=== PATIENT | female | born 1965 | race Caucasian/White ===

== ENCOUNTER → 2018-12-03 | Outpatient (CLI) | payer OTHER ==
--- NOTE | 2018-12-04 10:45 | MM ---
Reason for exam: screening (asymptomatic). Last mammogram was performed 3 years ago. History: Patient is postmenopausal and is nulliparous. Family history of breast cancer in grandmother. Physical Findings: A clinical breast exam by your physician is recommended on an annual basis and results should be correlated with mammographic findings. MG Screening Mammo w CAD Bilateral CC and MLO view(s) were taken. Prior study comparison: December 06, 2015, bilateral MG screening mammo w CAD. December 04, 2011, mammogram, performed at [facility]. There are scattered fibroglandular densities. No significant new finding when compared with prior studies. ASSESSMENT: Benign, BI-RAD 2 RECOMMENDATION: Routine screening mammogram of both breasts in 1 year.
== END | disposition home or self-care (01) ==
LOC: RADMAMWWP 14:41
PROVIDERS: ATTEND Family Medicine
DX: Z12.31 Encounter for screening mammogram for malignant neoplasm of breast (principal)
CPT/HCPCS: 77067

== ENCOUNTER 2019-07-16 18:14 | Emergency (ER) | payer OTHER ==
[2019-07-16 18:25] VITALS: TEMP 98
--- NOTE | 2019-07-16 18:55 | ED ---
General Adult HPI - General Chief complaint: Recheck/Abnormal Lab/Rx Stated complaint: ABN labs Time Seen by Provider: 07/16/19 18:48 Source: patient, RN notes reviewed, old records reviewed Mode of arrival: wheelchair Limitations: altered mental status - History of Present Illness Initial comments: 53-year-old female presents from [facility] for evaluation of abnormal outpatient lab. Patient was found to be hypokalemic today and sent to the emergency department for evaluation. Patient has no specific complaints. No vomiting or diarrhea. No fever or chills. She receives routine blood draws because she is on Clazuril. - Related Data Home Medications Medication Instructions Recorded Confirmed cloZAPine [Clozaril] 300 mg PO HS 11/25/15 07/16/19 Cyanocobalamin [Vitamin B-12] 500 mcg PO DAILY 03/22/16 07/16/19 Docusate [Colace] 100 mg PO BID 03/22/16 07/16/19 Ibuprofen [Motrin] 600 mg PO Q8HR PRN 03/22/16 07/16/19 Inulin/Chromium Picolinate [Fiber 1 tab PO DAILY 03/22/16 07/16/19 Gummies Chew] Multivitamins, Thera [Multivitamin 1 tab PO DAILY 03/22/16 07/16/19 (formulary)] [place]-3 Fatty Acids/Fish Oil [Fish 1 cap PO QAM 03/22/16 07/16/19 Oil 1,000 mg Softgel] cloZAPine [Clozaril] 100 mg PO DAILY 03/22/16 07/16/19 LORazepam [Ativan] 0.5 mg PO HS PRN 04/10/16 07/16/19 Levothyroxine Sodium [Synthroid] 75 mcg PO DAILY 04/10/16 07/16/19 lamoTRIgine [LaMICtal] 100 mg PO QAM 04/10/16 07/16/19 Krill Oil 500 mg PO DAILY 06/06/17 07/16/19 diphenhydrAMINE HCL [Benadryl] 25 mg PO HS 06/06/17 07/16/19 lamoTRIgine [LaMICtal] 150 mg PO HS 06/06/17 07/16/19 traZODone HCL [Desyrel] 150 mg PO HS 06/06/17 07/16/19 Doxycycline [Vibramycin] 100 mg PO BID 07/17/18 07/16/19 Previous Rx's Medication Instructions Recorded Loratadine [Claritin] 10 mg PO DAILY #30 tab 05/19/15 Montelukast [Singulair] 10 mg PO HS #30 tab 05/19/15 Allergies Allergy/AdvReac Type Severity Reaction Status Date / Time Penicillins Allergy Unknown Verified 07/16/19 18:25 Childhood sulfamethoxazole Allergy Anaphylaxis Verified 07/16/19 18:25 [From Bactrim] trimethoprim [From Bactrim] Allergy Anaphylaxis Verified 07/16/19 18:25 Review of Systems ROS Statement: Those systems with pertinent positive or pertinent negative responses have been documented in the HPI. ROS Other: All systems not noted in ROS Statement are negative. Past Medical History Past Medical History: GERD/Reflux, Hyperlipidemia Additional Past Medical History / Comment(s): Possible Sleep Apnea, DIFF TO DO TESTING R/T MENTAL HEALTH, Development Delay. RHINITIS, POSS ALLERGIES. UNSTEADY AT TIMES R/T WGT. CHRONIC CONSTIPATION, RECENTLY BLACK W/ POS BLOOD. History of Any Multi-Drug Resistant Organisms: None Reported Past Surgical History: Appendectomy, Hysterectomy Additional Past Surgical History / Comment(s): COLONOSCOPY 11/2015. Past Anesthesia/Blood Transfusion Reactions: No Reported Reaction Additional Past Anesthesia/Blood Transfusion Reaction / Comment(s): VERY HARD IV START. Past Psychological History: Depression, Schizoaffective Disorder Smoking Status: Never smoker Past Alcohol Use History: None Reported Past Drug Use History: None Reported - Past Family History Mother Family Medical History: No Reported History General Exam Limitations: altered mental status General appearance: alert, in no apparent distress Head exam: Present: atraumatic, normocephalic Eye exam: Present: normal appearance, PERRL ENT exam: Present: normal exam Neck exam: Present: normal inspection. Absent: tenderness, meningismus Respiratory exam: Present: normal lung sounds bilaterally. Absent: respiratory distress Cardiovascular Exam: Present: regular rate, normal rhythm GI/Abdominal exam: Present: soft. Absent: distended, tenderness Extremities exam: Present: normal inspection, normal capillary refill. Absent: pedal edema Neurological exam: Present: alert. Absent: motor sensory deficit Skin exam: Present: warm, dry, intact, normal color. Absent: cyanosis, diaphoretic Course Vital Signs 07/16/19 18:22 Temperature 98.0 F Pulse Rate 105 H Respiratory 22 Rate Blood Pressure 134/77 O2 Sat by Pulse 98 Oximetry EKG Findings - EKG Comments: EKG Findings:: EKG: Sinus rhythm, low voltage, rate of 100, MO interval 140, QRS duration 92, QTC 454, no ST segment elevation Medical Decision Making - Medical Decision Making 53 presenting for abnormal lab testing. She was found to be hypokalemic and sent in for evaluation. Laboratory tests are redraw, she has normal CBC, normal CMP, normal potassium, normal magnesium. She will be discharged home - Lab Data Result diagrams: 07/16/19 19:10 07/16/19 19:10 Lab Results 07/16/19 07/16/19 Range/Units 19:10 19:10 WBC 5.9 (3.8-10.6) k/uL RBC 4.42 (3.80-5.40) m/uL Hgb 12.6 (11.4-16.0) gm/dL Hct 39.5 (34.0-46.0) % MCV 89.4 (80.0-100.0) fL MCH 28.5 (25.0-35.0) pg MCHC 31.9 (31.0-37.0) g/dL RDW 12.9 (11.5-15.5) % Plt Count 157 (150-450) k/uL Neutrophils % 64 % Lymphocytes % 23 % Monocytes % 6 % Eosinophils % 2 % Basophils % 2 % Neutrophils # 3.8 (1.3-7.7) k/uL Lymphocytes # 1.4 (1.0-4.8) k/uL Monocytes # 0.4 (0-1.0) k/uL Eosinophils # 0.1 (0-0.7) k/uL Basophils # 0.1 (0-0.2) k/uL Sodium 140 (137-145) mmol/L Potassium 4.0 (3.5-5.1) mmol/L Chloride 103 (98-107) mmol/L Carbon Dioxide 28 (22-30) mmol/L Anion Gap 9 mmol/L BUN 15 (7-17) mg/dL Creatinine 0.70 (0.52-1.04) mg/dL Est GFR (CKD-EPI)AfAm >90 (>60 ml/min/1.73 sqM) Est GFR (CKD-EPI)NonAf >90 (>60 ml/min/1.73 sqM) Glucose 163 H (74-99) mg/dL Calcium 9.3 (8.4-10.2) mg/dL Magnesium 1.7 (1.6-2.3) mg/dL Total Bilirubin 0.2 (0.2-1.3) mg/dL AST 27 (14-36) U/L ALT 21 (4-34) U/L Alkaline Phosphatase 102 (38-126) U/L Total Protein 7.0 (6.3-8.2) g/dL Albumin 4.2 (3.5-5.0) g/dL Disposition Clinical Impression: Abnormal laboratory test Disposition: HOME SELF-CARE Condition: Good Is patient prescribed a controlled substance at d/c from ED?: No Referrals: Nyasia Kaur MD [Primary Care Provider] - 1-2 days Time of Disposition: 19:55
[2019-07-16 19:33] LABS: Basophils # (A) 0.1 k/uL (0-0.2); Basophils % (A) 2 %; Eosinophils # (A) 0.1 k/uL (0-0.7); Eosinophils % (A) 2 %; HCT 39.5 % (34.0-46.0); HGB 12.6 gm/dL (11.4-16.0); Lymphocytes # (A) 1.4 k/uL (1.0-4.8); Lymphocytes % (A) 23 %; MCH 28.5 pg (25.0-35.0); MCHC 31.9 g/dL (31.0-37.0); MCV 89.4 fL (80.0-100.0); Mean Platelet Volume 7.5; Monocytes # (A) 0.4 k/uL (0-1.0); Monocytes % (A) 6 %; Neutrophils # (A) 3.8 k/uL (1.3-7.7); Neutrophils % (A) 64 %; Platelet Count 157 k/uL (150-450); RBC 4.42 m/uL (3.80-5.40); RDW 12.9 % (11.5-15.5); WBC 5.9 k/uL (3.8-10.6)
[2019-07-16 19:43] LABS: ALT 21 U/L (4-34); AST 27 U/L (14-36); African American GFR (CKD) >90 (>60 ml/min/1.73 sqM); Albumin 4.2 g/dL (3.5-5.0); Alkaline Phosphatase 102 U/L (38-126); Anion Gap 9 mmol/L; Blood Urea Nitrogen 15 mg/dL (7-17); Calcium 9.3 mg/dL (8.4-10.2); Carbon Dioxide 28 mmol/L (22-30); Chloride 103 mmol/L (98-107); Glucose 163 mg/dL (74-99); Magnesium 1.7 mg/dL (1.6-2.3); Non-African American GFR(CKD) >90 (>60 ml/min/1.73 sqM); Sodium 140 mmol/L (137-145); Total Bilirubin 0.2 mg/dL (0.2-1.3)
[2019-07-16 20:41] VITALS: BP 127/79; PULSE 97; RESP 16
== END 2019-07-16 20:40 | disposition home or self-care (01) ==
LOC: EC 18:14
DX: R79.9 Abnormal finding of blood chemistry, unspecified (principal); R41.82 Altered mental status, unspecified; K59.09 Other constipation; F32.9 Major depressive disorder, single episode, unspecified; F25.9 Schizoaffective disorder, unspecified; Z88.0 Allergy status to penicillin; Z88.2 Allergy status to sulfonamides; Z79.890 Hormone replacement therapy; Z79.899 Other long term (current) drug therapy
CPT/HCPCS: 36415; 80053; 83735; 85025; 93005; 99285

== ENCOUNTER 2019-08-02 11:40 | Observation (INO) | payer OTHER ==
[2019-08-02] MEDS ORDERED: IPRATROPIUM-ALBUTEROL 3 ML NEB INHALATION STA (12:17)
--- NOTE | 2019-08-02 12:27 | ED ---
URI HPI - General Source: patient, RN notes reviewed, Caregiver Mode of arrival: wheelchair Limitations: no limitations <Srikanth Salazar - Last Filed: 08/02/19 16:13> <Marisabel Loo - Last Filed: 08/09/19 17:07> - General Chief Complaint: Upper Respiratory Infection Stated Complaint: cold/congestion Time Seen by Provider: 08/02/19 11:56 - History of Present Illness Initial Comments: 53-year-old female presents emergency Department with caregiver chief complaint cough congestion for 1 week. Patient was started on antibiotics and steroids to use ago. They state that she has not improved at this time patient denies any chest pain no known fever or chills. Denies any nausea, vomiting, diarrhea constipation she states that her nose very congested, plugged at this time. Patient denies ear pain, sore throat no difficulty eating or drinking. (Srikanth Salazar) - Related Data Home Medications Medication Instructions Recorded Confirmed cloZAPine [Clozaril] 300 mg PO HS 11/25/15 08/02/19 Docusate [Colace] 100 mg PO BID 03/22/16 08/02/19 cloZAPine [Clozaril] 100 mg PO QAM 03/22/16 08/02/19 LORazepam [Ativan] 0.5 mg PO HS PRN 04/10/16 08/02/19 Levothyroxine Sodium [Synthroid] 75 mcg PO DAILY 04/10/16 08/02/19 lamoTRIgine [LaMICtal] 100 mg PO QAM 04/10/16 08/02/19 diphenhydrAMINE HCL [Benadryl] 25 mg PO HS 06/06/17 08/02/19 lamoTRIgine [LaMICtal] 150 mg PO HS 06/06/17 08/02/19 traZODone HCL [Desyrel] 150 mg PO HS 06/06/17 08/02/19 Acetaminophen [Tylenol Arthritis] 650 mg PO BID PRN 08/02/19 08/02/19 Famotidine [Pepcid] 20 mg PO BID 08/02/19 08/02/19 Hydrocortisone Cream 1 applic TOPICAL BID 08/02/19 08/02/19 [Hydrocortisone 2.5% Cream] Lactulose [Constulose] 10 gm PO BID 08/02/19 08/02/19 Mupirocin 2% Oint [Bactroban 2% 1 applic TOPICAL DAILY PRN 08/02/19 08/02/19 Oint] Nystatin 100,000 Unit/gm Powd 1 applic TOPICAL BID 08/02/19 08/02/19 [Mycostatin Powder] guaiFENesin [guaiFENesin Oral 400 mg PO DAILY PRN 08/02/19 08/02/19 Solution] Previous Rx's Medication Instructions Recorded Loratadine [Claritin] 10 mg PO DAILY #30 tab 05/19/15 Montelukast [Singulair] 10 mg PO HS #30 tab 05/19/15 Albuterol Inhaler [Ventolin Hfa 1 - 2 puff INHALATION RT-Q6H PRN 08/04/19 Inhaler] #1 inhaler Budesonide [Pulmicort Flexhaler] 2 puff INHALATION BID #1 inhaler 08/04/19 Fluticasone Nasal [place] [Flonase 1 spray EA NOSTRIL BID #1 spray 08/04/19 Nasal [place]] predniSONE [Deltasone] See Taper PO DAILY #20 tab 08/04/19 Allergies Allergy/AdvReac Type Severity Reaction Status Date / Time Penicillins Allergy Unknown Verified 08/02/19 17:44 Childhood sulfamethoxazole Allergy Anaphylaxis Verified 08/02/19 17:44 [From Bactrim] trimethoprim [From Bactrim] Allergy Anaphylaxis Verified 08/02/19 17:44 Review of Systems ROS Other: All systems not noted in ROS Statement are negative. <Srikanth Salazar - Last Filed: 08/02/19 16:13> ROS Other: All systems not noted in ROS Statement are negative. <Marisabel Loo - Last Filed: 08/09/19 17:07> ROS Statement: Those systems with pertinent positive or pertinent negative responses have been documented in the HPI. Past Medical History Past Medical History: GERD/Reflux, Hyperlipidemia Additional Past Medical History / Comment(s): Possible Sleep Apnea, DIFF TO DO TESTING R/T MENTAL HEALTH, Development Delay. RHINITIS, POSS ALLERGIES. UNSTEADY AT TIMES R/T WGT. CHRONIC CONSTIPATION, RECENTLY BLACK W/ POS BLOOD. History of Any Multi-Drug Resistant Organisms: None Reported Past Surgical History: Appendectomy, Hysterectomy Additional Past Surgical History / Comment(s): COLONOSCOPY 11/2015. Past Anesthesia/Blood Transfusion Reactions: No Reported Reaction Additional Past Anesthesia/Blood Transfusion Reaction / Comment(s): VERY HARD IV START. Past Psychological History: Depression, Schizoaffective Disorder Smoking Status: Never smoker Past Alcohol Use History: None Reported Past Drug Use History: None Reported - Past Family History Mother Family Medical History: No Reported History <Srikanth Salazar - Last Filed: 08/02/19 16:13> General Exam Limitations: no limitations General appearance: alert, in no apparent distress Head exam: Present: atraumatic, normocephalic, normal inspection Eye exam: Present: normal appearance, PERRL, EOMI. Absent: scleral icterus, conjunctival injection, periorbital swelling ENT exam: Present: mucous membranes moist, TM's normal bilaterally, normal external ear exam. Absent: normal oropharynx (Postnasal drainage) Neck exam: Present: normal inspection, full ROM. Absent: tenderness, meningismus, lymphadenopathy Respiratory exam: Present: wheezes. Absent: normal lung sounds bilaterally, respiratory distress, rales, rhonchi, stridor Cardiovascular Exam: Present: regular rate, normal rhythm, normal heart sounds. Absent: systolic murmur, diastolic murmur, rubs, gallop, clicks <Srikanth Slaazar - Last Filed: 08/02/19 16:13> Course Vital Signs 08/02/19 08/02/19 08/02/19 11:48 12:37 12:52 Temperature 98.5 F Pulse Rate 100 88 92 Respiratory 20 Rate Blood Pressure 131/80 O2 Sat by Pulse 95 Oximetry 08/02/19 08/02/19 08/02/19 15:01 15:12 15:23 Temperature 98.7 F Pulse Rate 96 88 88 Respiratory 18 Rate Blood Pressure 131/80 O2 Sat by Pulse 98 Oximetry 08/02/19 08/02/19 16:29 17:43 Temperature 98.9 F 98.7 F Pulse Rate 98 94 Respiratory 18 18 Rate Blood Pressure 139/73 128/74 O2 Sat by Pulse 94 L 98 Oximetry Medical Decision Making - Lab Data Result diagrams: 08/02/19 13:30 08/02/19 13:30 <Srikanth Salazar - Last Filed: 08/02/19 16:13> - Lab Data Result diagrams: 08/02/19 13:30 08/02/19 13:30 <Marisabel Loo - Last Filed: 08/09/19 17:07> - Medical Decision Making Chest x-ray does not show a definite pneumonia though patient is having p ersistent wheezing, dyspnea with productive cough. Patient be admitted for failed outpatient treatment for tracheobronchitis. Patient will be placed on azithromycin, Rocephin, breathing treatments and steroids. (Srikanth Salazar) I was available for consultation in the emergency department. The history and physical exam were done by the midlevel provider. I was consulted for this patients care. I reviewed the case with the midlevel provider and based on their presentation of the patient, I agree with the assessment, medical decision making and plan of care as documented. I discussed the case with Dr. Mcghee who accepted admission Chart was dictated using [employer] dictation software. Attempts were made to correct any dictation errors however some typographical errors may persist. (Marisabel Loo) - Lab Data Lab Results 08/02/19 08/02/19 08/02/19 Range/Units 12:15 13:30 13:30 WBC 8.5 (3.8-10.6) k/uL RBC 4.42 (3.80-5.40) m/uL Hgb 12.7 (11.4-16.0) gm/dL Hct 39.1 (34.0-46.0) % MCV 88.6 (80.0-100.0) fL MCH 28.7 (25.0-35.0) pg MCHC 32.3 (31.0-37.0) g/dL RDW 13.0 (11.5-15.5) % Plt Count 172 (150-450) k/uL Neutrophils % 72 % Lymphocytes % 13 % Monocytes % 7 % Eosinophils % 1 % Basophils % 3 % Neutrophils # 6.1 (1.3-7.7) k/uL Lymphocytes # 1.1 (1.0-4.8) k/uL Monocytes # 0.6 (0-1.0) k/uL Eosinophils # 0.1 (0-0.7) k/uL Basophils # 0.3 H (0-0.2) k/uL Sodium 137 (137-145) mmol/L Potassium 3.9 (3.5-5.1) mmol/L Chloride 98 (98-107) mmol/L Carbon Dioxide 29 (22-30) mmol/L Anion Gap 10 mmol/L BUN 16 (7-17) mg/dL Creatinine 0.65 (0.52-1.04) mg/dL Est GFR (CKD-EPI)AfAm >90 (>60 ml/min/1.73 sqM) Est GFR (CKD-EPI)NonAf >90 (>60 ml/min/1.73 sqM) Glucose 188 H (74-99) mg/dL Lactic Ac Sepsis Rflx Plasma Lactic Acid Volodymyr (0.7-2.0) mmol/L Calcium 9.5 (8.4-10.2) mg/dL Total Bilirubin 0.3 (0.2-1.3) mg/dL AST 26 (14-36) U/L ALT 19 (4-34) U/L Alkaline Phosphatase 90 (38-126) U/L Total Protein 7.1 (6.3-8.2) g/dL Albumin 4.3 (3.5-5.0) g/dL Influenza Type A RNA Not Detected (Not Detectd) Influenza Type B (PCR) Not Detected (Not Detectd) 08/02/19 08/02/19 Range/Units 13:30 14:10 WBC (3.8-10.6) k/uL RBC (3.80-5.40) m/uL Hgb (11.4-16.0) gm/dL Hct (34.0-46.0) % MCV (80.0-100.0) fL MCH (25.0-35.0) pg MCHC (31.0-37.0) g/dL RDW (11.5-15.5) % Plt Count (150-450) k/uL Neutrophils % % Lymphocytes % % Monocytes % % Eosinophils % % Basophils % % Neutrophils # (1.3-7.7) k/uL Lymphocytes # (1.0-4.8) k/uL Monocytes # (0-1.0) k/uL Eosinophils # (0-0.7) k/uL Basophils # (0-0.2) k/uL Sodium (137-145) mmol/L Potassium (3.5-5.1) mmol/L Chloride (98-107) mmol/L Carbon Dioxide (22-30) mmol/L Anion Gap mmol/L BUN (7-17) mg/dL Creatinine (0.52-1.04) mg/dL Est GFR (CKD-EPI)AfAm (>60 ml/min/1.73 sqM) Est GFR (CKD-EPI)NonAf (>60 ml/min/1.73 sqM) Glucose (74-99) mg/dL Lactic Ac Sepsis Rflx Y Plasma Lactic Acid Volodymyr 2.7 H* (0.7-2.0) mmol/L Calcium (8.4-10.2) mg/dL Total Bilirubin (0.2-1.3) mg/dL AST (14-36) U/L ALT (4-34) U/L Alkaline Phosphatase (38-126) U/L Total Protein (6.3-8.2) g/dL Albumin (3.5-5.0) g/dL Influenza Type A RNA (Not Detectd) Influenza Type B (PCR) (Not Detectd) Disposition <Srikanth Salazar - Last Filed: 08/02/19 16:13> <Marisabel Loo - Last Filed: 08/09/19 17:07> Clinical Impression: Tracheobronchitis, Failure of outpatient treatment Disposition: ADMITTED IP TO THIS HOSP Condition: Fair
--- NOTE | 2019-08-02 12:40 | XR ---
EXAMINATION TYPE: XR chest 1V DATE OF EXAM: 08/02/2019 HISTORY: cough. REFERENCE: Previous study dated 12/16/2015. FINDINGS: The lungs are clear. Pleural spaces are clear. The heart is not enlarged. Note is made of a right internal jugular catheter in place with its tip in the superior vena cava. IMPRESSION: NO ACTIVE INTRATHORACIC DISEASE.
[2019-08-02] MEDS ORDERED: methylPREDNISolone SOD SUCCI 125 MG/2 ML VIAL IV STA (13:08)
[2019-08-02] MEDS ORDERED: cefTRIAXone IN SWFI 1,000 MG/10 ML SYRINGE IVP STA (13:08)
[2019-08-02 13:49] LABS: Basophils # (A) 0.3 k/uL (0-0.2); Basophils % (A) 3 %; Eosinophils # (A) 0.1 k/uL (0-0.7); Eosinophils % (A) 1 %; HCT 39.1 % (34.0-46.0); HGB 12.7 gm/dL (11.4-16.0); Lymphocytes # (A) 1.1 k/uL (1.0-4.8); Lymphocytes % (A) 13 %; MCH 28.7 pg (25.0-35.0); MCHC 32.3 g/dL (31.0-37.0); MCV 88.6 fL (80.0-100.0); Mean Platelet Volume 7.8; Monocytes # (A) 0.6 k/uL (0-1.0); Monocytes % (A) 7 %; Neutrophils # (A) 6.1 k/uL (1.3-7.7); Neutrophils % (A) 72 %; Platelet Count 172 k/uL (150-450); RBC 4.42 m/uL (3.80-5.40); WBC 8.5 k/uL (3.8-10.6)
[2019-08-02 13:58] LABS: ALT 19 U/L (4-34); AST 26 U/L (14-36); African American GFR (CKD) >90 (>60 ml/min/1.73 sqM); Albumin 4.3 g/dL (3.5-5.0); Alkaline Phosphatase 90 U/L (38-126); Anion Gap 10 mmol/L; Blood Urea Nitrogen 16 mg/dL (7-17); Calcium 9.5 mg/dL (8.4-10.2); Carbon Dioxide 29 mmol/L (22-30); Chloride 98 mmol/L (98-107); Glucose 188 mg/dL (74-99); Non-African American GFR(CKD) >90 (>60 ml/min/1.73 sqM); Sodium 137 mmol/L (137-145); Total Bilirubin 0.3 mg/dL (0.2-1.3); Total Protein 7.1 g/dL (6.3-8.2)
[2019-08-02 14:14] LABS: Potassium 3.9 mmol/L (3.5-5.1)
[2019-08-02] MEDS ORDERED: ALBUTEROL NEBULIZED 2.5 MG/3 ML INHALATION STA (14:34)
[2019-08-02] MEDS ORDERED: AZITHROMYCIN 500 MG in SODIUM CHLORIDE 0.9% 250 ML IVPB STA (16:13)
[2019-08-02] MEDS ORDERED: ACETAMINOPHEN TAB 325 MG TAB PO PRN (17:54)
[2019-08-02] MEDS ORDERED: NALOXONE 0.4 MG/ML 1 ML VIAL IV PRN (17:54)
[2019-08-02] MEDS: methylPREDNISolone SOD SUCCI 125 MG/2 ML VIAL IV SCH (18:03)
--- NOTE | 2019-08-02 18:06 | P.HPIM ---
History of Present Illness Chief Complaint: Shortness of breath This is a 53-year-old female with history of schizophrenia who was brought in by caregiver due to 3 days of URI like symptoms accompanied by wheezing and shortness of breath. Symptoms started 34 days ago slowly with some chills and malaise nasal congestion. Soon after patient starts having cough productive of brownish mucus right ear pain and fullness sensation of chest congestion although able subjective wheezing and exertional dyspnea that progressed to resting dyspnea. There was no fever. Sick contact is her roommate. She did not have any nausea vomiting diarrhea or abdominal pain. She did not have any decrease oral intake. 3 days prior to the admission she was started the Medrol Dosepak and Zithromax but since her symptoms progressed she was brought to emergency department. Patient is currently quite comfortable to breathing treatment and steroids. She is on room air in no any active respiratory distress. Her vital signs are stable and she's been afebrile. Chest x-ray did not show any acute infiltrates. Patient is a lifelong nonsmoker and without any previously diagnosed asthma or COPD or any broncho-constrictive disease. She does not have any recent travels or hospitalizations. Influenza was negative in the ER. Review of Systems Review of systems performed is negative except mentioned in HPI Past Medical History Past Medical History: GERD/Reflux, Hyperlipidemia Additional Past Medical History / Comment(s): Possible Sleep Apnea, DIFF TO DO TESTING R/T MENTAL HEALTH, Development Delay. RHINITIS, POSS ALLERGIES. UNSTEADY AT TIMES R/T WGT. CHRONIC CONSTIPATION, RECENTLY BLACK W/ POS BLOOD. History of Any Multi-Drug Resistant Organisms: None Reported Past Surgical History: Appendectomy, Hysterectomy Additional Past Surgical History / Comment(s): COLONOSCOPY 11/2015. Past Anesthesia/Blood Transfusion Reactions: No Reported Reaction Additional Past Anesthesia/Blood Transfusion Reaction / Comment(s): VERY HARD IV START. Past Psychological History: Depression, Schizoaffective Disorder Smoking Status: Never smoker Past Alcohol Use History: None Reported Past Drug Use History: None Reported - Past Family History Mother Family Medical History: No Reported History Medications and Allergies Home Medications Medication Instructions Recorded Confirmed Type Loratadine [Claritin] 10 mg PO DAILY #30 tab 05/19/15 07/16/19 Rx Montelukast [Singulair] 10 mg PO HS #30 tab 05/19/15 07/16/19 Rx cloZAPine [Clozaril] 300 mg PO HS 11/25/15 07/16/19 History Docusate [Colace] 100 mg PO BID 03/22/16 07/16/19 History cloZAPine [Clozaril] 100 mg PO DAILY 03/22/16 07/16/19 History LORazepam [Ativan] 0.5 mg PO HS PRN 04/10/16 07/16/19 History Levothyroxine Sodium [Synthroid] 75 mcg PO DAILY 04/10/16 07/16/19 History lamoTRIgine [LaMICtal] 100 mg PO QAM 04/10/16 07/16/19 History diphenhydrAMINE HCL [Benadryl] 25 mg PO HS 06/06/17 07/16/19 History lamoTRIgine [LaMICtal] 150 mg PO HS 06/06/17 07/16/19 History traZODone HCL [Desyrel] 150 mg PO HS 06/06/17 07/16/19 History Acetaminophen [Tylenol Arthritis] 650 mg PO BID PRN 08/02/19 08/02/19 History Azithromycin [Zithromax Z-pack] See Taper PO DIRECTED 08/02/19 08/02/19 History Benzonatate [Tessalon Perles] 200 mg PO TID 08/02/19 08/02/19 History Famotidine [Pepcid] 20 mg PO BID 08/02/19 08/02/19 History Fluticasone Nasal [place] [Flonase 1 spray EA NOSTRIL BID 08/02/19 08/02/19 History Nasal [place]] Hydrocortisone Cream 1 applic TOPICAL BID 08/02/19 08/02/19 History [Hydrocortisone 2.5% Cream] Lactulose [Constulose] 10 gm PO BID 08/02/19 08/02/19 History Mupirocin 2% Oint [Bactroban 2% 1 applic TOPICAL DAILY PRN 08/02/19 08/02/19 History Oint] Nystatin 100,000 Unit/gm Powd 1 applic TOPICAL BID 08/02/19 08/02/19 History [Mycostatin Powder] Phenylephrine HCl [Sudafed PE] 10 mg PO BID PRN 08/02/19 08/02/19 History guaiFENesin [guaiFENesin Oral 400 mg PO DAILY PRN 08/02/19 08/02/19 History Solution] methylPREDNISolone [Medrol Dose See Taper PO DIRECTED 08/02/19 08/02/19 History Pack] Allergies Allergy/AdvReac Type Severity Reaction Status Date / Time Penicillins Allergy Unknown Verified 08/02/19 17:44 Childhood sulfamethoxazole Allergy Anaphylaxis Verified 08/02/19 17:44 [From Bactrim] trimethoprim [From Bactrim] Allergy Anaphylaxis Verified 08/02/19 17:44 Physical Exam Vitals: Vital Signs Temp Pulse Resp BP Pulse Ox 08/02/19 17:43 98.7 F 94 18 128/74 98 08/02/19 16:29 98.9 F 98 18 139/73 94 L 08/02/19 15:23 88 08/02/19 15:12 88 08/02/19 15:01 98.7 F 96 18 131/80 98 08/02/19 12:52 92 08/02/19 12:37 88 08/02/19 11:48 98.5 F 100 20 131/80 95 Intake and Output 08/02/19 08/02/19 08/02/19 06:59 14:59 22:59 Other: Weight 129.274 kg Vital Signs: I have reviewed the vital signs. GENERAL: no apparent distress, cooperative Eyes: PERRL, extraoculry movements intact, clear conjunctiva Head: : Atraumatic external nose and ears, oropharyngeal mucosa is moist without lesions or exudates. Right ear canal is clear there is a little fluid behind the right TM Neck: Symmetric, trachea midline, No thyromegaly, no masses or neck vain pulsation, no neck rigidity CVS: +S1/S2, No murmurs or gallops. Peripheral pulses 2+ and equal in all ex tremities. RESP: Unlabored respiratory effort. Breath sounds are present bilaterally with diffuse expiratory wheezes prolonged expiration. No crackles or rhonchi. Abdomen: Bowel sounds present in all 4 quadrants, Soft to palpation, Nontender/Nondistended, No hepatosplenomegaly, no hernias or masses, no CVA tnderness Musculoskeletal: Extremities w/o deformity, No cyanosis or clubbing, no joint swelling Skin: Warm, Dry. No rashes or lesions Neuro: interchange agent II-XII grossly intact, motor strenght 5/5 i upper and lower extremities, no clonus, patellar DTRs 2+ and sympetrical Psych: Awake, Alert, & Oriented (AAO) x3 Appropriate mood and affect Results CBC & Chem 7: 08/02/19 13:30 08/02/19 13:30 Labs: Abnormal Lab Results - Last 24 Hours (Table) 08/02/19 08/02/19 08/02/19 Range/Units 13:30 13:30 13:30 Basophils # 0.3 H (0-0.2) k/uL Glucose 188 H (74-99) mg/dL Plasma Lactic Acid Volodymyr 2.7 H* (0.7-2.0) mmol/L Assessment and Plan Assessment: 1. Acute tracheobronchitis patient is nontoxic nonseptic appearing chest x-ray is clear she's been afebrile and she is currently on room air She has significant dyspnea with minimal exertion hence she will be observed in the hospital as her home situation is unstable Continue systemic steroids, antibiotics and bronchodilators Pulmonary toilet and increase activity as tolerated Antitusics 2. Right otitis media Continue above mentioned care This was discussed with the caregiver with advice for patient to have close reexamination in 2-3 weeks She informed the patient will have actually appointment with ENT in 2 weeks 3. Schizophrenia Currently patient seems stable and compensated I'm awaiting for pharmacy to confirm her oral medications so we can continue Patient is a full code She has a caregiver in the room and she does not name anybody else's surrogate decision maker 2 or more midnights stay may be needed
[2019-08-02] MEDS: IPRATROPIUM-ALBUTEROL 3 ML NEB INHALATION SCH (19:06)
[2019-08-03] MEDS: methylPREDNISolone SOD SUCCI 125 MG/2 ML VIAL IV SCH ×5 (01:21→23:02)
[2019-08-03] MEDS ORDERED: LACTATED RINGERS 1,000 ML IV SCH (07:15)
[2019-08-03] MEDS ORDERED: ALTEPLASE 2 MG VIAL (CATHFLO) IV STA (07:32)
[2019-08-03] MEDS: IPRATROPIUM-ALBUTEROL 3 ML NEB INHALATION SCH ×4 (08:25→19:14)
[2019-08-03] MEDS: ENOXAPARIN 40 MG/0.4 ML SYRINGE SQ SCH (08:26)
[2019-08-03] MEDS ORDERED: LACTULOSE 20 GM/30 ML CUP PO PRN (08:52)
[2019-08-03] MEDS ORDERED: NON FORMULARY DRUG (Acetaminophen [Tylenol Arthritis] 650 MG) PO PRN (08:52)
[2019-08-03] MEDS ORDERED: guaiFENesin SYRUP 100MG/5ML 200 MG/10 ML CUP PO PRN (08:52)
--- NOTE | 2019-08-03 08:52 | P.PN ---
Subjective Patient is feeling better this morning. She still wheezing and reports some exertional dyspnea. No resting dyspnea. She is on room air currently. She remains febrile. Patient refused blood draw this morning. Lactic acid. Objective - Vital Signs Vital signs: Vital Signs Temp 98.6 F 08/03/19 07:35 Pulse 80 08/03/19 08:25 Resp 16 08/03/19 07:35 BP 121/69 08/03/19 07:35 Pulse Ox 94 L 08/03/19 07:35 Intake & Output 08/02/19 08/03/19 08/03/19 18:59 06:59 18:59 Weight 129.274 kg Other: Voiding Method Toilet # Voids 1 # Bowel Movements 1 - Exam Patient is awake alert oriented 3 no obvious Distress Lungs: Diminished breath sounds with diffuse expiratory wheezes bilaterally but improved since yesterday Cardiovascular regular rhythm and rate S1-S2 Abdomen soft nontender nondistended extremities no peripheral edema - Labs CBC & Chem 7: 08/02/19 13:30 08/02/19 13:30 Labs: Abnormal Lab Results - Last 24 Hours (Table) 08/02/19 08/02/19 08/02/19 Range/Units 13:30 13:30 13:30 Basophils # 0.3 H (0-0.2) k/uL Glucose 188 H (74-99) mg/dL Plasma Lactic Acid Volodymyr 2.7 H* (0.7-2.0) mmol/L 08/02/19 Range/Units 17:44 Basophils # (0-0.2) k/uL Glucose (74-99) mg/dL Plasma Lactic Acid Volodymyr 3.1 H* (0.7-2.0) mmol/L Assessment and Plan Assessment: # Acute tracheobronchitis and probable asthma exacerbation patient is nontoxic nonseptic appearing chest x-ray is clear she's been afebrile and she is currently on room air She has significant dyspnea with minimal exertion hence she will be observed in the hospital as her home situation is unstable Continue systemic steroids, antibiotics and bronchodilators Pulmonary toilet and increase activity as tolerated Antitusics #Mild lactic acidosis Suspected due to use of albuterol We will give IV fluids repeat mentation allows blood #Right otitis media Continue above mentioned care This was discussed with the caregiver with advice for patient to have close reexamination in 2-3 weeks She informed the patient will have actually appointment with ENT in 2 weeks # Schizophrenia Currently patient seems stable and compensated Home medications confirmed
[2019-08-03] MEDS ORDERED: AZITHROMYCIN 500 MG TAB PO SCH (09:00)
[2019-08-03] MEDS: FAMOTIDINE 20 MG TAB PO SCH ×2 (10:18→21:38)
[2019-08-03] MEDS: cloZAPine 100 MG TAB PO SCH (10:18)
[2019-08-03] MEDS: DOCUSATE 100 MG CAP PO SCH ×2 (10:18→21:38)
[2019-08-03] MEDS: lamoTRIgine 100 MG TAB PO SCH (10:18)
[2019-08-03] MEDS: FLUTICASONE 50MCG/SPRAY NASAL 16GM EA NOSTRIL SCH ×2 (10:19→23:10)
[2019-08-03] MEDS: NYSTATIN 100,000 UNIT/GM POWD 15 GM TOPICAL SCH ×2 (10:19→23:09)
[2019-08-03] MEDS: HYDROCORTISONE 1% CREAM 30 GM TUBE TOPICAL SCH ×2 (10:19→23:10)
[2019-08-03] MEDS: LORATADINE 10 MG TAB PO SCH (10:19)
[2019-08-03] MEDS ORDERED: traZODone HCL 50 MG TAB PO SCH (21:00)
[2019-08-03] MEDS ORDERED: LORazepam 0.5 MG TAB PO PRN (21:00)
[2019-08-03] MEDS ORDERED: MONTELUKAST 10 MG TAB PO SCH (21:00)
[2019-08-03] MEDS ORDERED: cloZAPine 100 MG TAB PO SCH (21:00)
[2019-08-03] MEDS ORDERED: lamoTRIgine 100 MG TAB PO SCH (21:00)
[2019-08-04] MEDS: methylPREDNISolone SOD SUCCI 125 MG/2 ML VIAL IV SCH (05:51)
[2019-08-04] MEDS ORDERED: LEVOTHYROXINE 75 MCG TAB PO SCH (06:30)
[2019-08-04] MEDS: FAMOTIDINE 20 MG TAB PO SCH (08:48)
[2019-08-04] MEDS: DOCUSATE 100 MG CAP PO SCH (08:48)
[2019-08-04] MEDS: LORATADINE 10 MG TAB PO SCH (08:48)
[2019-08-04] MEDS: lamoTRIgine 100 MG TAB PO SCH (08:48)
[2019-08-04] MEDS: ENOXAPARIN 40 MG/0.4 ML SYRINGE SQ SCH (08:48)
[2019-08-04] MEDS: cloZAPine 100 MG TAB PO SCH (08:48)
[2019-08-04] MEDS: NYSTATIN 100,000 UNIT/GM POWD 15 GM TOPICAL SCH (08:55)
[2019-08-04] MEDS: FLUTICASONE 50MCG/SPRAY NASAL 16GM EA NOSTRIL SCH (08:55)
[2019-08-04] MEDS: HYDROCORTISONE 1% CREAM 30 GM TUBE TOPICAL SCH (08:55)
[2019-08-04] MEDS: IPRATROPIUM-ALBUTEROL 3 ML NEB INHALATION SCH ×3 (09:43→15:45)
[2019-08-04] MEDS ORDERED: OXYMETAZOLINE 0.05% NASL SPRAY 1 SPRAY BOTTLE NASAL SCH (10:15)
[2019-08-04] MEDS ORDERED: predniSONE 20 MG TAB PO SCH (11:55)
[2019-08-04 16:25] VITALS: BP 131/75; PULSE 92; RESP 19; TEMP 98.6
--- NOTE | 2019-08-04 18:05 | P.DS ---
Providers Date of admission: 08/02/19 16:31 Attending physician: Gulshan Mcghee MD Primary care physician: Nyasia Kaur Hospital Course: Reason for admission:shortness of breath Discharge diagnosis: Acute bronchitis Probable underlying asthma with exacerbation URI Otitis media Discharge medications: Prednisone taper Albuterol MDI when necessary with spacer ; (patient has albuterol nebulizer machine and solution at home) Pulmicort twice a day Flonase Follow-up recommended: PCP in 1-2 days Hospital course This is a 53-year-old female who presents with shortness of breath and nonproductive cough. Patient developed URI like symptoms few days prior to the admission and then started developing chest wheezing dry cough and sinus congestive changes. She was started on Zithromax and Medrol Dosepak by primary care doctor 2 days prior to the admission but since breathing worsen she was brought to emergency department for evaluation. White blood cell count was normal. Chest x-ray was without any acute infiltrates. Patient was afebrile in no any respiratory distress in the room. Patient was treated with course of steroid burst, Zithromax and bronchodilators. Patient condition improved and on day of discharge or wheezing was minimal. She was comfortable on the room air in the febrile. She finished a course of Zithromax and she was switched to oral steroids and bronchodilators. Disposition: On the day of discharge patient remained on room air. Her breathing was calm and she was not exhibiting any discomfort. She was speaking in normal full sentences. She was ambulating in the room to the bathroom and back without any exertional dyspnea or discomfort or shortness of breath. I discussed with the caregiver in detail. Patient still does have some expiratory wheezing on exam but she is in no distress not hypoxic not short of breath she is able to ambulate in the room without any distress. Some wheezing and congestive changes will persist and take additional time to resolve and since patient has good close monitoring by caregiving staff at the facility therapy can be continued there. Would recommend after her symptoms resolved to obtain pulmonary function test. Patient has already scheduled ENT appointment for next week. Patient Condition at Discharge: Fair Plan - Discharge Summary Discharge Rx Participant: No New Discharge Prescriptions: New predniSONE [Deltasone] See Taper PO DAILY #20 tab Budesonide [Pulmicort Flexhaler] 2 puff INHALATION BID #1 inhaler Albuterol Inhaler [Ventolin Hfa Inhaler] 1 - 2 puff INHALATION RT-Q6H PRN #1 inhaler PRN Reason: Shortness Of Breath Continue Loratadine [Claritin] 10 mg PO DAILY #30 tab Montelukast [Singulair] 10 mg PO HS #30 tab cloZAPine [Clozaril] 300 mg PO HS cloZAPine [Clozaril] 100 mg PO QAM Docusate [Colace] 100 mg PO BID lamoTRIgine [LaMICtal] 100 mg PO QAM LORazepam [Ativan] 0.5 mg PO HS PRN PRN Reason: Anxiety Levothyroxine Sodium [Synthroid] 75 mcg PO DAILY traZODone HCL [Desyrel] 150 mg PO HS diphenhydrAMINE HCL [Benadryl] 25 mg PO HS lamoTRIgine [LaMICtal] 150 mg PO HS Mupirocin 2% Oint [Bactroban 2% Oint] 1 applic TOPICAL DAILY PRN PRN Reason: SORES UNDER BREAST OR GROIN Nystatin 100,000 Unit/gm Powd [Mycostatin Powder] 1 applic TOPICAL BID Lactulose [Constulose] 10 gm PO BID Hydrocortisone Cream [Hydrocortisone 2.5% Cream] 1 applic TOPICAL BID Famotidine [Pepcid] 20 mg PO BID Acetaminophen [Tylenol Arthritis] 650 mg PO BID PRN PRN Reason: Pain guaiFENesin [guaiFENesin Oral Solution] 400 mg PO DAILY PRN PRN Reason: Cough Fluticasone Nasal Rocky [Flonase Nasal Rocky] 1 spray EA NOSTRIL BID #1 spray Discontinued Phenylephrine HCl [Sudafed PE] 10 mg PO BID PRN PRN Reason: Sinus Symptoms Azithromycin [Zithromax Z-pack] See Taper PO DIRECTED methylPREDNISolone [Medrol Dose Pack] See Taper PO DIRECTED Benzonatate [Tessalon Perles] 200 mg PO TID Discharge Medication List Loratadine [Claritin] 10 mg PO DAILY #30 tab 05/19/15 [Rx] Montelukast [Singulair] 10 mg PO HS #30 tab 05/19/15 [Rx] cloZAPine [Clozaril] 300 mg PO HS 11/25/15 [History] Docusate [Colace] 100 mg PO BID 03/22/16 [History] cloZAPine [Clozaril] 100 mg PO QAM 03/22/16 [History] LORazepam [Ativan] 0.5 mg PO HS PRN 04/10/16 [History] Levothyroxine Sodium [Synthroid] 75 mcg PO DAILY 04/10/16 [History] lamoTRIgine [LaMICtal] 100 mg PO QAM 04/10/16 [History] diphenhydrAMINE HCL [Benadryl] 25 mg PO HS 06/06/17 [History] lamoTRIgine [LaMICtal] 150 mg PO HS 06/06/17 [History] traZODone HCL [Desyrel] 150 mg PO HS 06/06/17 [History] Acetaminophen [Tylenol Arthritis] 650 mg PO BID PRN 08/02/19 [History] Famotidine [Pepcid] 20 mg PO BID 08/02/19 [History] Hydrocortisone Cream [Hydrocortisone 2.5% Cream] 1 applic TOPICAL BID 08/02/19 [History] Lactulose [Constulose] 10 gm PO BID 08/02/19 [History] Mupirocin 2% Oint [Bactroban 2% Oint] 1 applic TOPICAL DAILY PRN 08/02/19 [History] Nystatin 100,000 Unit/gm Powd [Mycostatin Powder] 1 applic TOPICAL BID 08/02/19 [History] guaiFENesin [guaiFENesin Oral Solution] 400 mg PO DAILY PRN 08/02/19 [History] Albuterol Inhaler [Ventolin Hfa Inhaler] 1 - 2 puff INHALATION RT-Q6H PRN #1 inhaler 08/04/19 [Rx] Budesonide [Pulmicort Flexhaler] 2 puff INHALATION BID #1 inhaler 08/04/19 [Rx] Fluticasone Nasal Rocky [Flonase Nasal Rocky] 1 spray EA NOSTRIL BID #1 spray 08/04/19 [Rx] predniSONE [Deltasone] See Taper PO DAILY #20 tab 08/04/19 [Rx] Follow up Appointment(s)/Referral(s): Nyasia Kaur MD [Primary Care Provider] - 1-2 days Patient Instructions/Handouts: Acute Bronchitis (GEN) Discharge Disposition: HOME SELF-CARE
== END 2019-08-04 18:25 | disposition home or self-care (01) ==
LOC: EC 11:40 → 4SSUR 16:31
PROVIDERS: ADMIT Hospitalist; ATTEND Hospitalist
DX: J06.9 Acute upper respiratory infection, unspecified (principal); J20.9 Acute bronchitis, unspecified; H66.91 Otitis media, unspecified, right ear; E87.2 Acidosis; F25.9 Schizoaffective disorder, unspecified; E78.5 Hyperlipidemia, unspecified; K21.9 Gastro-esophageal reflux disease without esophagitis; K59.09 Other constipation; Z88.0 Allergy status to penicillin; Z88.2 Allergy status to sulfonamides; Z79.51 Long term (current) use of inhaled steroids; Z79.890 Hormone replacement therapy; Z79.52 Long term (current) use of systemic steroids; Z79.899 Other long term (current) drug therapy; Z90.710 Acquired absence of both cervix and uterus
CPT/HCPCS: 99284; 96376 ×3; 96361 ×2; 96372 ×2; 96365; 96375; 36415; 94640 ×6; 80053; 83605; 85025; 87040; 87502; 71045; G0378 ×3; J2930 ×3; J0456; J1650 ×2; J0696; S0136 ×2; J1642; J2997; J7512

== ENCOUNTER 2021-01-29 18:11 | Emergency (ER) | payer OTHER ==
[2021-01-29 18:22] VITALS: RESP 18; TEMP 99
--- NOTE | 2021-01-29 19:13 | ED ---
Fall HPI - General Chief Complaint: Fall Stated Complaint: Fall Time Seen by Provider: 01/29/21 18:33 Source: patient, EMS Mode of arrival: EMS - History of Present Illness Initial Comments: 55-year-old female presents to the emergency department with a chief complaint of fall. Patient reports she was in the shower when she attempted to get out, she suffered a slip and fall on her buttocks. Patient denies any head injuries. States most of the pain is located in her right ankle and foot however. Patient reports she has some swelling on the lateral aspect of the right ankle were limited range of motion due to the pain. However, she denies any swelling or ecchymosis to the region. States the pain is sharp in nature and exacerbated with weightbearing. Alleviated with rest. - Related Data Home Medications Medication Instructions Recorded Confirmed cloZAPine [Clozaril] 300 mg PO HS 11/25/15 12/29/20 Docusate [Colace] 100 mg PO BID 03/22/16 12/29/20 cloZAPine [Clozaril] 100 mg PO QAM 03/22/16 12/29/20 LORazepam [Ativan] 0.5 mg PO HS PRN 04/10/16 12/29/20 Levothyroxine Sodium [Synthroid] 75 mcg PO DAILY 04/10/16 12/29/20 lamoTRIgine [LaMICtal] 100 mg PO QAM 04/10/16 12/29/20 lamoTRIgine [LaMICtal] 150 mg PO HS 06/06/17 12/29/20 traZODone HCL [Desyrel] 150 mg PO HS 06/06/17 12/29/20 Famotidine [Pepcid] 20 mg PO BID 08/02/19 12/29/20 Hydrocortisone Cream 1 applic TOPICAL BID 08/02/19 12/29/20 [Hydrocortisone 2.5% Cream] Lactulose [Constulose] 10 gm PO BID 08/02/19 12/29/20 Mupirocin 2% Oint [Bactroban 2% 1 applic TOPICAL DAILY PRN 08/02/19 12/29/20 Oint] Nystatin 100,000 Unit/gm Powd 1 applic TOPICAL BID 08/02/19 12/29/20 [Mycostatin Powder] guaiFENesin [guaiFENesin Oral 400 mg PO DAILY PRN 08/02/19 12/29/20 Solution] Clotrimazole [Clotrimazole 1% Top 1 applic TOPICAL DIRECTED PRN 12/29/20 12/29/20 Soln] Ibuprofen [Motrin] 600 mg PO Q8HR PRN 12/29/20 12/29/20 Loratadine 10 mg PO DAILY 12/29/20 12/29/20 Multivitamins, Thera [Multivitamin 1 tab PO DAILY 12/29/20 12/29/20 (formulary)] Bowlus-3 Fatty Acids/Fish Oil [Fish 1 each PO DAILY 12/29/20 12/29/20 Oil 1,000 mg Softgel] Omeprazole [PriLOSEC] 10 mg PO DAILY 12/29/20 12/29/20 diphenhydrAMINE [Benadryl] 25 mg PO DIRECTED 12/29/20 12/29/20 Previous Rx's Medication Instructions Recorded Montelukast [Singulair] 10 mg PO HS #30 tab 05/19/15 Albuterol Inhaler (Mhu) [Ventolin 1 - 2 puff INHALATION RT-Q6H PRN 08/04/19 Hfa Inhaler (Mhu)] #1 inhaler Budesonide [Pulmicort Flexhaler] 2 puff INHALATION BID #1 inhaler 08/04/19 Fluticasone Nasal Gem [Flonase 1 spray EA NOSTRIL BID #1 spray 08/04/19 Nasal Gem] predniSONE [Deltasone] See Taper PO DAILY #20 tab 08/04/19 Allergies Allergy/AdvReac Type Severity Reaction Status Date / Time Penicillins Allergy Unknown Verified 01/29/21 18:29 Childhood sulfamethoxazole Allergy Anaphylaxis Verified 01/29/21 18:29 [From Bactrim] trimethoprim [From Bactrim] Allergy Anaphylaxis Verified 01/29/21 18:29 Review of Systems ROS Statement: Those systems with pertinent positive or pertinent negative responses have been documented in the HPI. ROS Other: All systems not noted in ROS Statement are negative. Past Medical History Past Medical History: GERD/Reflux, Hyperlipidemia Additional Past Medical History / Comment(s): Possible Sleep Apnea, DIFF TO DO TESTING R/T MENTAL HEALTH, Development Delay. RHINITIS, POSS ALLERGIES. UNSTEADY AT TIMES R/T WGT. CHRONIC CONSTIPATION, RECENTLY BLACK W/ POS BLOOD. History of Any Multi-Drug Resistant Organisms: None Reported Past Surgical History: Appendectomy, Hysterectomy Additional Past Surgical History / Comment(s): COLONOSCOPY 11/2015. Past Anesthesia/Blood Transfusion Reactions: No Reported Reaction Additional Past Anesthesia/Blood Transfusion Reaction / Comment(s): VERY HARD IV START. Past Psychological History: Depression, Schizoaffective Disorder Smoking Status: Never smoker Past Alcohol Use History: Unable to Obtain Past Drug Use History: Unable to Obtain - Past Family History Mother Family Medical History: No Reported History General Exam Limitations: no limitations General appearance: alert, in no apparent distress, obese Head exam: Present: atraumatic, normocephalic, normal inspection Eye exam: Present: normal appearance, PERRL Pupils: Present: normal accommodation ENT exam: Present: normal exam, normal oropharynx, mucous membranes moist Neck exam: Present: normal inspection, full ROM. Absent: tenderness, lymphadenopathy Respiratory exam: Present: normal lung sounds bilaterally. Absent: respiratory distress Cardiovascular Exam: Present: regular rate, normal rhythm, normal heart sounds. Absent: systolic murmur Extremities exam: Present: normal inspection, tenderness (Lateral midfoot t enderness. Lateral malleolus tenderness. No tenderness significantly along the tib-fib region.), normal capillary refill, other (Palpable DP and PT bilaterally.). Absent: full ROM (Limited range of motion with inversion of the right ankle), pedal edema, joint swelling, calf tenderness Back exam: Present: normal inspection, full ROM. Absent: tenderness Neurological exam: Present: alert, oriented X3 Psychiatric exam: Present: normal affect, normal mood Skin exam: Present: warm, dry, intact, normal color Course Vital Signs 01/29/21 18:16 Temperature 99.0 F Pulse Rate 104 H Respiratory 18 Rate Blood Pressure 136/68 O2 Sat by Pulse 96 Oximetry Medical Decision Making - Medical Decision Making 55-year-old female presents to the emergency department with a chief complaint of fall. On physical examination, she is no vascular intact in the right lower cavity. She does have lateral malleolus tenderness. Swelling was also noted. X-rays of the foot or ankle and tib-fib region are unremarkable. Patient likely suffered an ankle sprain during the fall. This was from a standing ground level. Without any head injuries. Patient was given ibuprofen per her request. I will discharge her with Tylenol 3. She can otherwise follow with human resources benefits specialist. Caregiver was also present this information was communicated with her. Strict return parameters were thoroughly discussed patient is an attending ago. Case discussed with physician. Disposition Clinical Impression: Fall, Right ankle sprain Disposition: HOME SELF-CARE Condition: Stable Instructions (If sedation given, give patient instructions): Ankle Sprain (DC) Additional Instructions: Take Tylenol and Motrin 3 times per day. Take Tylenol 3 if the pain is worse than usual. Take only one tablet, twice a day. Follow with human resources benefits specialist. Return to emergency department if symptoms worsen. Is patient prescribed a controlled substance at d/c from ED?: No Referrals: Nyasia Kaur MD [Primary Care Provider] - 1-2 days Srikanth Hernandez DO [Doctor of Osteopathic Medicine] - 1-2 days Time of Disposition: 20:04
--- NOTE | 2021-01-29 19:51 | XR ---
EXAMINATION TYPE: XR tibia fibula RT DATE OF EXAM: 01/29/2021 COMPARISON: NONE HISTORY: Ankle pain TECHNIQUE: 3 views FINDINGS: There is mild plantar calcaneal spurring. The tibia and fibula appear intact. I see no frac ture nor dislocation. Ankle mortise is anatomic. Knee joint appears intact. There is some spurring on the patella. IMPRESSION: There are some mild degenerative changes. No fracture seen.
--- NOTE | 2021-01-29 19:59 | XR ---
EXAMINATION TYPE: XR foot complete RT DATE OF EXAM: 01/29/2021 COMPARISON: NONE HISTORY: Foot pain TECHNIQUE: 3 views FINDINGS: Metatarsals are intact. There is mild multiple hammertoe deformity. There is plantar and Ac hilles calcaneal spurring.I see no fracture. IMPRESSION: No fracture seen. Hammertoe deformities.
--- NOTE | 2021-01-29 20:01 | XR ---
EXAMINATION TYPE: XR ankle complete RT DATE OF EXAM: 01/29/2021 COMPARISON: NONE HISTORY: Ankle pain TECHNIQUE: 3 views FINDINGS: There is plantar and Achilles calcaneal spurring. I see no fracture nor dislocation. There is some mild sclerosis in the lateral dome of the talus. There is some soft tissue swelling around th e ankle. IMPRESSION: Soft tissue mild swelling. Possible degenerative cyst formation or small focus of osteoch ondritis dissecans in the lateral dome of the talus. No fracture seen.
[2021-01-29] MEDS: ACET/COD 300 MG/30 MG STARTER PACK 6 TAB BTL PO STA (20:22)
[2021-01-29] MEDS: IBUPROFEN 600 MG TAB PO STA (20:23)
[2021-01-29] MEDS: LORazepam 1 MG TAB PO STA (20:27)
[2021-01-29 20:38] VITALS: BP 136/89; PULSE 102
== END 2021-01-29 20:30 | disposition home or self-care (01) ==
LOC: SUPCPDRO 18:11 → EC 18:11
DX: S93.401A Sprain of unspecified ligament of right ankle, initial encounter (principal); E78.5 Hyperlipidemia, unspecified; K21.9 Gastro-esophageal reflux disease without esophagitis; G47.30 Sleep apnea, unspecified; F32.9 Major depressive disorder, single episode, unspecified; F25.9 Schizoaffective disorder, unspecified; Z79.1 Long term (current) use of non-steroidal anti-inflammatories (NSAID); Z79.51 Long term (current) use of inhaled steroids; Z79.52 Long term (current) use of systemic steroids; Z88.0 Allergy status to penicillin; Z88.1 Allergy status to other antibiotic agents; Z88.2 Allergy status to sulfonamides; Z90.49 Acquired absence of other specified parts of digestive tract; W01.0XXA Fall on same level from slipping, tripping and stumbling without subsequent striking against object, initial encounter
CPT/HCPCS: 99284

== ENCOUNTER → 2022-01-20 | Outpatient (CLI) | payer OTHER ==
--- NOTE | 2022-01-20 11:50 | XR ---
EXAMINATION TYPE: XR Hip Complete RT DATE OF EXAM: 01/20/2022 COMPARISON: None HISTORY: Right lower quadrant pain TECHNIQUE: 2 view right hip FINDINGS: Femoral head articulates with the acetabulum. Joint space appears preserved. No acute fract ure or dislocation is evident. Follow up exams can be performed 7-10 days from acute trauma for swapna nued pain. IMPRESSION: 1. Acute osseous abnormality right hip
== END | disposition home or self-care (01) ==
LOC: RADXRMAIN 10:34
PROVIDERS: ATTEND Nurse Practitioner Family
DX: R10.31 Right lower quadrant pain (principal); M25.851 Other specified joint disorders, right hip
CPT/HCPCS: 73502

== ENCOUNTER → 2022-02-22 | Outpatient (CLI) | payer OTHER ==
--- NOTE | 2022-02-23 07:48 | MM ---
Reason for Exam: Screening (asymptomatic). Last mammogram was performed 3 year(s) and 2 month(s) ago. Patient History: Menarche at age 11. Patient has no children. Left ovary removed at age 47. Right ovary removed at age 47. Hysterectomy at age 47. Postmenopausal. Maternal grandmother had breast cancer. Risk Values: Pari 5 year model risk: 1.5%. NCI Lifetime model risk: 9.7%. Prior Study Comparison: 12/04/2011 Screening Mammogram, [facility]. 12/06/2015 Bilateral Screening Mammogram, [facility]. 12/03/2018 Bilateral Screening Mammogram, [facility]. Tissue Density: The breast tissue is heterogeneously dense. This may lower the sensitivity of mammography. Findings: Analyzed By CAD. Scattered tiny benign peribronchial stations bilaterally redemonstrated. Circumscribed small oval mass towards the right axilla is stable suspect low-lying lymph node. There is no suspicious group of microcalcifications or new suspicious mass in either breast. Overall Assessment: Benign, BI-RAD 2 Management: Screening Mammogram of both breasts in 1 year. A clinical breast exam by your physician is recommended on an annual basis and results should be correlated with mammographic findings. Electronically signed and approved by: Juan Collins M.D.
== END | disposition home or self-care (01) ==
LOC: RADMAMWWP 08:33
PROVIDERS: ATTEND Family Medicine
DX: Z12.31 Encounter for screening mammogram for malignant neoplasm of breast (principal); Z78.0 Asymptomatic menopausal state; Z80.3 Family history of malignant neoplasm of breast
CPT/HCPCS: 77067

== ENCOUNTER → 2023-03-14 | Outpatient (CLI) | payer OTHER ==
--- NOTE | 2023-03-15 08:38 | MM ---
Reason for Exam: Screening (asymptomatic). Last mammogram was performed 1 year(s) and 1 month(s) ago. Patient History: Menarche at age 11. Patient has no children. Left ovary removed at age 47. Right ovary removed at age 47. Hysterectomy at age 47. Postmenopausal. Maternal grandmother had breast cancer. Risk Values: Pari 5 year model risk: 1.6%. NCI Lifetime model risk: 9.5%. Prior Study Comparison: 12/06/2015 Bilateral Screening Mammogram, [facility]. 12/03/2018 Bilateral Screening Mammogram, [facility]. 02/22/2022 Bilateral MG screening mammo w CAD, [facility]. Tissue Density: The breast tissue is heterogeneously dense. This may lower the sensitivity of mammography. Findings: Analyzed By CAD. There is no suspicious group of microcalcifications or new suspicious mass in either breast. Overall Assessment: Benign, BI-RAD 2 Management: Screening Mammogram of both breasts in 1 year. . Patient should continue monthly self-breast exams. A clinical breast exam by your physician is recommended on an annual basis. This exam should not preclude additional follow-up of suspicious palpable abnormalities. Note on Pari scores and lifetime risk: 1. A Pari score greater than 3% is considered moderate risk. If this is the case, consider specialist referral to assess eligibility for a risk reducing agent. 2. If overall lifetime risk for the development of breast cancer is 20% or higher, the patient may qualify for future screening with alternating mammogram and breast MRI. Electronically signed and approved by: Jonathan Esposito M.D. Radiologis
== END | disposition home or self-care (01) ==
LOC: RADMAMWWP 07:50
PROVIDERS: ATTEND Family Medicine
DX: Z12.31 Encounter for screening mammogram for malignant neoplasm of breast (principal); Z78.0 Asymptomatic menopausal state; Z80.3 Family history of malignant neoplasm of breast
CPT/HCPCS: 77063; 77067

== ENCOUNTER 2023-06-21 13:17 | Emergency (ER) | payer OTHER ==
--- NOTE | 2023-06-21 15:32 | ED ---
General Adult HPI - General Source: RN notes reviewed <Maria Isabel Wilson - Last Filed: 06/21/23 15:31> - General Source: patient, RN notes reviewed, Caregiver <Sadia Ray - Last Filed: 06/21/23 18:27> - General Stated complaint: Back pain/fall Time Seen by Provider: 06/21/23 15:31 - History of Present Illness Initial comments: 57-year-old female presents the emergency department with a chief complaint fall patient reports she fell a few days ago. She fell on the back of her head and she is complaining of upper back pain. Denies loss of consciousness. Denies anticoagulant use. Accompanied by her guardian. (Maria Isabel Wilson) Patient is a 57-year-old female presented ER with chief complaint of a fall. operations and maintenance technican, at bedside, is providing most of the HPI. Caregiver reports patient was sitting in a chair and went to moss picker something off the ground on 06/19/23. Patient slipped out of her chair and fell hitting her head. Caregiver reports that patient got on all fours for a second and then got up acting normally. Denies loss of consciousness, blood thinner use. Patient is reporting that her upper back is also hurting. Caregiver reports that she is acting at baseline. Caregiver reports that patient was acting normally yesterday and started to have increased pain today which brought them to the ER for evaluation. Patient has been taking prescribed Percocet for pain control. (Sdaia Ray) - Related Data Home Medications Medication Instructions Recorded Confirmed cloZAPine [Clozaril] 300 mg PO HS 11/25/15 06/14/23 Docusate [Colace] 100 mg PO BID 03/22/16 06/14/23 cloZAPine [Clozaril] 100 mg PO QAM 03/22/16 06/14/23 LORazepam [Ativan] 0.5 mg PO HS PRN 04/10/16 06/14/23 Levothyroxine Sodium [Synthroid] 75 mcg PO DAILY 04/10/16 06/14/23 lamoTRIgine [LaMICtal] 100 mg PO QAM 04/10/16 06/14/23 Lactulose [Constulose] 10 gm PO BID 08/02/19 06/14/23 Mupirocin 2% Oint [Bactroban 2% 1 applic TOPICAL DAILY PRN 08/02/19 06/14/23 Oint] Nystatin 100,000 Unit/gm Powd 1 applic TOPICAL BID 08/02/19 06/14/23 [Mycostatin Powder] diphenhydrAMINE [Benadryl] 25 mg PO DIRECTED 12/29/20 06/14/23 Cetirizine HCl [Zyrtec] 10 mg PO DAILY@62906/21/23 06/21/23 Fenofibrate Nanocrystallized 145 mg PO DAILY@192906/21/23 06/21/23 [Fenofibrate] Fluticasone Nasal [place] [Flonase 1 - 2 spray EA NOSTRIL DAILY@62906/21/23 06/21/23 Nasal [place]] Montelukast [Singulair] 10 mg PO DAILY@192906/21/23 06/21/23 Omeprazole [PriLOSEC] 20 mg PO DAILY@62906/21/23 06/21/23 lamoTRIgine [LaMICtal] 300 mg PO DAILY@169906/21/23 06/21/23 traMADol HCl [Ultram] 50 mg PO QAM PRN 06/21/23 06/21/23 traZODone HCL [Desyrel] 200 mg PO DAILY@192906/21/23 06/21/23 Allergies Allergy/AdvReac Type Severity Reaction Status Date / Time Penicillins Allergy Unknown Verified 06/21/23 18:11 Childhood sulfamethoxazole Allergy Anaphylaxis Verified 06/21/23 18:11 [From Bactrim] trimethoprim [From Bactrim] Allergy Anaphylaxis Verified 06/21/23 18:11 Review of Systems ROS Other: All systems not noted in ROS Statement are negative. <Maria Isabel Wilson - Last Filed: 06/21/23 15:31> ROS Other: All systems not noted in ROS Statement are negative. <Sadia Ray - Last Filed: 06/21/23 18:27> ROS Statement: Those systems with pertinent positive or pertinent negative responses have been documented in the HPI. Past Medical History Past Medical History: GERD/Reflux, Hyperlipidemia Additional Past Medical History / Comment(s): Possible Sleep Apnea, DIFF TO DO TESTING R/T MENTAL HEALTH, Development Delay. RHINITIS, POSS ALLERGIES. UN STEADY AT TIMES R/T WGT. CHRONIC CONSTIPATION, RECENTLY BLACK W/ POS BLOOD. History of Any Multi-Drug Resistant Organisms: None Reported Past Surgical History: Appendectomy, Hysterectomy Additional Past Surgical History / Comment(s): COLONOSCOPY 11/2015. Past Anesthesia/Blood Transfusion Reactions: No Reported Reaction Additional Past Anesthesia/Blood Transfusion Reaction / Comment(s): VERY HARD IV START. Smoking Status: Never smoker - Past Family History Mother Family Medical History: No Reported History <Maria Isabel Wilson - Last Filed: 06/21/23 15:31> General Exam <Maria Isabel Wilson - Last Filed: 06/21/23 15:31> General appearance: alert, in no apparent distress Head exam: Present: other (top of scalp is tender to palpitation ) Eye exam: Present: normal appearance, PERRL, EOMI. Absent: scleral icterus, conjunctival injection, periorbital swelling Pupils: Present: normal accommodation ENT exam: Present: normal exam, mucous membranes moist Neck exam: Present: normal inspection, tenderness Respiratory exam: Present: normal lung sounds bilaterally. Absent: respiratory distress, wheezes, rales, rhonchi, stridor Cardiovascular Exam: Present: regular rate, normal rhythm, normal heart sounds. Absent: systolic murmur, diastolic murmur, rubs, gallop, clicks Extremities exam: Present: normal inspection, full ROM, normal capillary refill. Absent: tenderness, pedal edema, joint swelling, calf tenderness Back exam: Present: tenderness (Thoracic spine) Neurological exam: Present: alert, oriented X3, CN II-XII intact Psychiatric exam: Present: normal affect, normal mood Skin exam: Present: warm, dry, intact, normal color. Absent: rash <Sadia Ray - Last Filed: 06/21/23 18:27> - General Exam Comments Initial Comments: Visual Physical Exam Vital signs reviewed General: Well-appearing, nontoxic, no acute distress. Head: Normocephalic, atraumatic Eyes: PERRLA, EOMI ENT: Airway patent Chest: Nonlabored breathing Skin: No visual rash, normal skin tone Neuro: Alert and oriented 3 Musculoskeletal: No gross abnormalities (Maria Isabel Wilson) Course Vital Signs 06/21/23 06/21/23 15:42 17:25 Temperature 98.0 F 98 F Pulse Rate 97 90 Respiratory 22 22 Rate Blood Pressure 135/82 129/84 O2 Sat by Pulse 98 98 Oximetry Medical Decision Making <Maria Isabel Wilson - Last Filed: 06/21/23 15:31> - Radiology Data Radiology results: report reviewed, image reviewed <Sadia Ray - Last Filed: 06/21/23 18:27> - Medical Decision Making I performed the quick note portion of this exam, verbal signature Maria Isabel Wilson PA-C (Maria Isabel Wilson) Was pt. sent in by a medical professional or institution ([facility]HER [facility], CERTIFIED PERSONAL TRAINER, urgent care, hospital, or detention...) When possible be specific @ -No Did you speak to anyone other than the patient for history (EMS, parent, family, police, friend...)? What history was obtained from this source @ -Caregiver who provided HPI Did you review nursing and triage notes (agree or disagree)? Why? @ -I reviewed and agree with nursing and triage notes Were old charts reviewed (outside hosp., previous admission, EMS record, old EKG, old radiological studies, urgent care reports/EKG's, detention records)? Report findings @ -No old charts were reviewed Differential Diagnosis (chest pain, altered mental status, abdominal pain women, abdominal pain men, vaginal bleeding, weakness, fever, dyspnea, syncope, headache, dizziness, GI bleed, back pain, seizure, CVA, palpatations, mental health, musculoskeletal)? @ -Intracranial hemorrhage, scalp contusion, abrasion, laceration, fracture EKG interpreted by me (3pts min.). @ -None X-rays interpreted by me (1pt min.). @ -Thoracic spine x-ray shows no acute fractures or dislocations. There is moderate degeneration of spine. CT interpreted by me (1pt min.). @ -CT brain C-spine shows no acute intracranial process. There is no evidence of cervical spine fractures. There is moderate multilevel degenerative disc disease. There is also diffuse idiopathic skeletal hyperostosis. U/S interpreted by me (1pt. min.). @ -None done What testing was considered but not performed or refused? (CT, X-rays, U/S, labs)? Why? @ -None What meds were considered but not given or refused? Why? @ -None Did you discuss the management of the patient with other professionals (professionals i.e. , PA, CERTIFIED PERSONAL TRAINER, lab, RT, psych nurse, social science instructor, metalizer field operation, teacher, information security officer, case folder)? Give summary @ -No Was smoking cessation discussed for >3mins.? @ -No Was critical care preformed (if so, how long)? @ -No Were there social determinants of health that impacted care today? How? (Homelessness, low income, unemployed, alcoholism, drug addiction, transportation, low edu. Level, literacy, decrease access to med. care, [facility], rehab)? @ -No Was there de-escalation of care discussed even if they declined (Discuss DNR or withdrawal of care, Hospice)? DNR status @ -No What co-morbidities impacted this encounter? (DM, HTN, Smoking, COPD, CAD, Cancer, CVA, ARF, Chemo, Hep., AIDS, mental health diagnosis, sleep apnea, morbid obesity)? @ -None Was patient admitted / discharged? Hospital course, mention meds given and route, prescriptions, significant lab abnormalities, going to OR and other pertinent info. @ -Discharge. Patient is 57-year-old female presented ER with chief complaint of a fall. Upon examination, patient's vital signs are stable. Physical exam was significant for pupils equal round and reactive. Patient was responsive to providers questions. Patient was complaining that her pain was extreme rating it an 10 out of 10. X-rays of thoracic spine showed no acute fractures or dislocations. CT brain C-spine was negative for acute intracranial process. Negative of cervical spine fractures or dislocations. There is multilevel degenerative disc disease throughout the spine. There is also diffuse idiopathic skeletal hyperostosis. Patient received by mouth tylenol for pain control in the ER. Patient is prescribed Percocet for pain regularly. I discussed imaging results with patient and caregiver, at bedside. Questions were answered. Return parameters were discussed. I advised patient to continue ADLs as normal. Patient will be discharged in stable condition with follow-up to PCP. Patient and caregiver expressed understanding and agreement with care plan. Undiagnosed new problem with uncertain prognosis? @ -No Drug Therapy requiring intensive monitoring for toxicity (Heparin, Nitro, Insulin, Cardizem)? @ -No Were any procedures done? @ -No Diagnosis/symptom? @ -Back pain Acute, or Chronic, or Acute on Chronic? @ -Chronic Uncomplicated (without systemic symptoms) or Complicated (systemic symptoms)? @ -Uncomplicated Side effects of treatment? @ -No Exacerbation, Progression, or Severe Exacerbation? @ -No Poses a threat to life or bodily function? How? (Chest pain, USA, OR, pneumonia, PE, COPD, DKA, ARF, appy, cholecystitis, CVA, Diverticulitis, Homicidal, Suicidal, threat to staff... and all critical care pts) @ -No (Sadia Ray) Disposition <Maria Isabel Wilson - Last Filed: 06/21/23 15:31> Is patient prescribed a controlled substance at d/c from ED?: No Time of Disposition: 17:07 <Sadia Ray - Last Filed: 06/21/23 18:27> Clinical Impression: Fall Disposition: HOME SELF-CARE Condition: Stable Instructions (If sedation given, give patient instructions): Fall Prevention (ED) Additional Instructions: Please return to the Emergency Department if symptoms worsen or any other concerns. Referrals: Beltran Junior DO [Primary Care Provider] - 1-2 days
[2023-06-21 15:50] VITALS: RESP 22
[2023-06-21] MEDS ORDERED: ACETAMINOPHEN TAB 500 MG TAB PO STA (16:40)
--- NOTE | 2023-06-21 16:43 | XR ---
EXAMINATION TYPE: XR thoracic spine 2V DATE OF EXAM: 06/21/2023 4:18 PM CLINICAL INDICATION:Female, 57 years old with history of fall; [facility] COMPARISON: None TECHNIQUE: XR thoracic spine 2V views of the thoracic spine in Frontal and lateral projections. FINDINGS: No evidence of acute fracture. There is scattered multilevel disk space narrowing without loss of ve rtebral body height. There is normal alignment of the thoracic vertebral bodies. Scattered osteophyte formation along the anterior and lateral aspects of the vertebral bodies. Neural foramen are patent given limitations of this exam. Spinal canal appears patent. Right central venous catheter with tip terminating at the superior cavoatrial junction. IMPRESSION: 1. No acute osseous pathology. 2. Moderate degeneration changes throughout the spine.
--- NOTE | 2023-06-21 16:46 | CT ---
EXAMINATION TYPE: CT brain cspine wo con CT DLP: 1628.5 mGycm, Automated exposure control for dose reduction was used. DATE OF EXAM: 06/21/2023 4:34 PM COMPARISON: None. CLINICAL INDICATION:Female, 57 years old with history of pain; pain after fall TECHNIQUE: Brain: Multiple axial CT images of the brain were obtained without IV contrast. Cspine: Axial CT images from the skull base to the inferior aspect of T2 we obtained without intraven ous contrast. Coronal and sagittal reformatted images were also reviewed. FINDINGS: Brain: Extra-axial spaces: No abnormal extra-axial fluid collections. Ventricular system: Within normal limits Cerebral parenchyma: No acute intraparenchymal hemorrhage or mass effect. The medina-white junction is well differentiated. Cerebellum: Unremarkable. Mass effect: No evidence of midline shift. Intracranial vasculature: Atherosclerotic calcifications of the intracranial vessels. Soft tissues: Normal. Calvarium/osseous structures: No depressed skull fracture. Paranasal sinuses and mastoid air cells: Clear. Visualized orbits: Orbital contents are intact. Cervical spine: Fracture: None. Osseous structures: Bridging osteophytes along the anterior vertebral bodies extending from T5 inferi jf. Multilevel degenerative disc disease changes with endplate spurring and disc osteophyte complex 's. Vertebral alignment: Within normal limits. Spinal canal/Neural Foramina: No evidence of significant spinal canal narrowing. No evidence for sign ificant neural foraminal stenosis. Neck soft tissues: Prevertebral soft tissues are within normal limits. Other: The airway is patent. The lung apices are clear. Right neck central venous catheter with tip terminating out of the [id number]. IMPRESSION: 1. No acute intracranial process. 2. No evidence of cervical spine fracture. 3. Moderate multilevel degenerative disc disease. 4. Diffuse idiopathic skeletal hyperostosis.
[2023-06-21 17:42] VITALS: BP 129/84; PULSE 90; TEMP 98
== END 2023-06-21 17:46 | disposition home or self-care (01) ==
LOC: EC 13:17
DX: M54.6 Pain in thoracic spine (principal); K21.9 Gastro-esophageal reflux disease without esophagitis; Z79.899 Other long term (current) drug therapy; W19.XXXA Unspecified fall, initial encounter
CPT/HCPCS: 70450; 72070; 72125; 99284

== ENCOUNTER → 2024-06-05 | Outpatient (CLI) | payer OTHER ==
--- NOTE | 2024-06-05 12:24 | US ---
EXAMINATION TYPE: US pelvic complete DATE OF EXAM: 06/05/2024 COMPARISON: US(03/01/2016) 06/06/2017. CLINICAL INDICATION: Female, 58 years old with history of R10.2 PELVIC PAIN; Pt has had complete hysterectomy, pelvic pain TECHNIQUE: . Transabdominal grayscale sonographic images of the pelvis were acquired. Transvaginal sonographic im ages were medically necessary to better assess the following anatomy: Doppler imaging: Not performed. FINDINGS: EXAM MEASUREMENTS: Uterus: Surgically absent cm Endometrial Stripe: Surgically absent cm Right Ovary: Surgically absent cm Left Ovary: Surgically absent cm No organizing fluid collection or mass. IMPRESSION: 1. No evidence for acute process. 2. No organizing fluid collection or mass. [facility], , 06/05/2024 12:22 PM
== END | disposition home or self-care (01) ==
LOC: RADUSWWP 11:33
PROVIDERS: ATTEND Family Medicine
DX: Z90.49 Acquired absence of other specified parts of digestive tract (principal)
CPT/HCPCS: 76856

== ENCOUNTER → 2024-07-17 | Outpatient (CLI) | payer OTHER ==
--- NOTE | 2024-07-23 07:25 | MM ---
Reason for Exam: Screening (asymptomatic). Last mammogram was performed 1 year(s) and 4 month(s) ago. Patient History: Menarche at age 11. Patient has no children. Left ovary removed at age 47. Right ovary removed at age 47. Hysterectomy at age 47. Postmenopausal. Maternal grandmother had breast cancer. Risk Values: Pari 5 year model risk: 1.6%. NCI Lifetime model risk: 9.3%. Prior Study Comparison: 12/03/2018 Bilateral Screening Mammogram, [facility]. 02/22/2022 Bilateral MG screening mammo w CAD, [facility]. 03/14/2023 Bilateral MG 3D screening mammo w/cad, [facility]. Tissue Density: There are scattered areas of fibroglandular density. Findings: Analyzed By CAD. Unchanged small intramammary lymph node upper-outer quadrant right breast. There is no suspicious group of microcalcifications or new suspicious mass in either breast. Overall Assessment: Benign, BI-RAD 2 Management: Screening Mammogram of both breasts in 1 year. Patient should continue monthly self-breast exams. A clinical breast exam by your physician is recommended on an annual basis. This exam should not preclude additional follow-up of suspicious palpable abnormalities. Note on Pari scores and lifetime risk: 1. A Pari score greater than 3% is considered moderate risk. If this is the case, consider specialist referral to assess eligibility for a risk reducing agent. 2. If overall lifetime risk for the development of breast cancer is 20% or higher, the patient may qualify for future screening with alternating mammogram and breast MRI. [facility], , 07/17/2024 8:23 AM. Electronically signed and approved by: Yaritza Delgado M.D. Radiologist
== END | disposition home or self-care (01) ==
LOC: RADMAMWWP 07:58
PROVIDERS: ATTEND Family Medicine
DX: Z12.31 Encounter for screening mammogram for malignant neoplasm of breast (principal); R92.323 Mammographic fibroglandular density, bilateral breasts; Z78.0 Asymptomatic menopausal state; Z80.3 Family history of malignant neoplasm of breast
CPT/HCPCS: 77063; 77067